=== PATIENT | female | born 1995 | race Caucasian/White ===

== ENCOUNTER 2021-07-05 15:17 | Emergency (ER) | payer MEDICAID, OTHER ==
[~2021-07-05] VITALS: Ht 157.5 cm; Wt 62.6 kg
[2021-07-05 15:27] VITALS: BP_SYST 113
[2021-07-05] MEDS ORDERED: NACL 0.9% 1,000 ML IV ONE (18:45)
[2021-07-05] MEDS ORDERED: KETOROLAC TROMETHAMINE 30 MG VIAL IVP ONE (18:45)
[2021-07-05] MEDS ORDERED: METOCLOPRAMIDE HCL 10 MG/2 ML VIAL IVP ONE (18:45)
[2021-07-05] MEDS ORDERED: METO-290 PO (19:45)
[2021-07-05] MEDS ORDERED: IBUP-1969 PO (19:45)
[2021-07-05] MEDS ORDERED: ACET-2634 PO (19:45)
[2021-07-05 20:02] VITALS: BP_SYST 113
== END 2021-07-05 20:04 | disposition home or self-care (01) ==
LOC: SED 15:17
DX: G43.009 Migraine without aura, not intractable, without status migrainosus (principal)
CPT/HCPCS: 70450; 76376; 93005; 96361; 96374; 96375; 99284; J1885; J2765; J7030

== ENCOUNTER 2022-08-11 16:27 | Emergency (ER) | payer MEDICAID ==
[~2022-08-11] VITALS: Ht 157.5 cm; Wt 62.6 kg
[~2022-08-11 16:27] MED LIST: ACET-2634 PO; IBUP-1969 PO; METO-290 PO; OSEL75CA PO
[2022-08-11 16:56] VITALS: BP_SYST 109
[2022-08-11] MEDS ORDERED: IBUPROFEN 800 MG TABLET PO ONE (19:30)
--- NOTE | 2022-08-11 19:45 | NUR ---
Patient placed in ER Chair 1 for MD evaluation. Instructed to notify ED staff for any changes in condition or worsening of symptoms while waiting to be seen by a provider. Patient verbalized understanding.
--- NOTE | 2022-08-11 19:46 | NUR ---
Dr. Pimentel at bedside examining the patient. Addendum: 08/11/22 at [address] Lawler at bedside examining the patient.
--- NOTE | 2022-08-11 20:50 | NUR ---
Patient is taken to ultrasund.
--- NOTE | 2022-08-11 21:00 | NUR ---
Patient is back from ultrasound.
--- NOTE | 2022-08-11 21:48 | NUR ---
Dr. Lawler at bedside discussing test results.
[2022-08-11] MEDS ORDERED: HYDC2.5% TP (21:53)
[2022-08-11 21:58] VITALS: BP_SYST 119
--- NOTE | 2022-08-11 21:59 | NUR ---
Patient given written and verbal discharge instructions and verbalizes understanding. ER MD discussed with patient the results and treatment provided. Patient in stable condition. ID arm band removed. Rx of HYDROCORTISONE given. Patient educated on pain management and to follow up with PMD. Pain Scale 0/10. Opportunity for questions provided and answered. Medication side effect fact sheet provided.
== END 2022-08-11 21:58 | disposition home or self-care (01) ==
LOC: SED 16:27
DX: L25.9 Unspecified contact dermatitis, unspecified cause (principal); R21 Rash and other nonspecific skin eruption; M79.89 Other specified soft tissue disorders; Z79.899 Other long term (current) drug therapy
CPT/HCPCS: 93971; 99284